=== PATIENT | female | born 1995 | race Asian ===

== ENCOUNTER 2019-12-03 09:50 | Day surgery (SDC) | payer OTHER ==
[~2019-12-03 09:50] MED LIST: Buffered Lidocaine 1% SYRIN* 1 ML/SYRINGE INTRADERM ONE; Dexamethasone IV* 4 MG/ML 1 ML (4 MG) IV SLOW PU ONE; Famotidine IV* 10 MG/ML 2 ML (20 mg) IV ONE; Lactated Ringers 1000 ML Bag* 1,000 ML IV SCH; Scopolamine 1.5 mg* PATCH TRANSDERM ONE
[2019-12-03] MEDS ORDERED: ceFAZolin 2 GM in NS PREMIX(*) 2 GM/100 ML BAG IVPB ONE (10:08)
[2019-12-03] MEDS ORDERED: Buffered Lidocaine 1% SYRIN* 1 ML/SYRINGE INTRADERM ONE (10:08)
[2019-12-03] MEDS ORDERED: Dexamethasone IV* 4 MG/ML 1 ML (4 MG) ONE (10:08)
[2019-12-03] MEDS ORDERED: Famotidine IV* 10 MG/ML 2 ML (20 mg) ONE (10:08)
[2019-12-03] MEDS ORDERED: Scopolamine 1.5 mg* PATCH ONE (10:08)
[2019-12-03] MEDS ORDERED: oxyCODONE/Acetamin 5/325 MG* TAB PO PRN (11:11)
[2019-12-03] MEDS ORDERED: Naloxone* 0.4 MG/ML 1 ML VIAL IV PRN (11:11)
[2019-12-03] MEDS ORDERED: PROCHLORPERAZINE INJ 5 MG/ML 2 ML VIAL IV PRN (11:11)
[2019-12-03] MEDS ORDERED: HYDROcodone/ACETAMIN 5-325 MG* 1 TAB PO PRN (11:11)
[2019-12-03] MEDS ORDERED: Propofol* 10 MG/ML 20 ML BTL ONE (11:28)
[2019-12-03] MEDS ORDERED: Midazolam* 1 MG/ML 5 ML VIAL (5 MG) ONE (11:28)
[2019-12-03] MEDS ORDERED: fentaNYL* 50 MCG/ML 2 ML VIAL (100 MCG VIAL) ONE ×3 (11:28→15:36)
[2019-12-03] MEDS ORDERED: Lidocaine 2% PF * 5 ML VIAL ONE (11:28)
[2019-12-03] MEDS ORDERED: Bupivacaine 0.5% W/EPI SDV* 30 ML VIAL ONE (11:44)
[2019-12-03] MEDS ORDERED: EPINEPHRINE 1 MG/ML 1 ML VIAL ONE (11:44)
[2019-12-03] MEDS ORDERED: Ketorolac INJ* 30 MG/ML 1 ML VIAL ONE (11:54)
[2019-12-03] MEDS ORDERED: KETAMINE HCL* 50 MG/ML 10 ML VIAL ONE (12:00)
[2019-12-03] MEDS ORDERED: Ondansetron INJ* 2 MG/ML VIAL ONE (14:09)
[2019-12-03] MEDS ORDERED: Phenylephrine 40 MCG/ML SYRINGE ONE (14:26)
[2019-12-03] MEDS ORDERED: EPHEDrine (Pressors)* 50 MG/ML VIAL ONE (14:36)
[2019-12-03] MEDS: fentaNYL* 50 MCG/ML 2 ML VIAL (100 MCG VIAL) IV PRN ×2 (15:28→15:34)
[2019-12-03] MEDS ORDERED: PROCHLORPERAZINE INJ 5 MG/ML 2 ML VIAL ONE (16:02)
[2019-12-03 17:35] VITALS: BP 110/68
--- NOTE | 2019-12-04 04:55 | OP ---
DATE OF OPERATION: 12/03/19 - [facility] DATE OF : 89 SURGEON: Glenroy Faye MD BEATER ROOM SUPERVISOR: ZOILA Starr. A physician real estate legal assistant was required for the length of the procedure for assistance with patient positioning, retraction, instrumentation, and closure. ANESTHESIOLOGIST: Dr. Sahara Betancur. ANESTHESIA: General anesthesia, local anesthesia using 30 cc of Marcaine 0.5% with epinephrine. PRE-OP DIAGNOSES: 1. Right knee anterior cruciate ligament tear. 2. Right knee displaced lateral meniscus tear, bucket handle. 3. Right knee locked knee secondary to displaced meniscus tear. 4. Right knee medial collateral ligament low-grade partial sprain. POST-OP DIAGNOSES: 1. Right knee anterior cruciate ligament tear. 2. Right knee displaced lateral meniscus tear, bucket handle. 3. Right knee locked knee secondary to displaced meniscus tear. 4. Right knee medial collateral ligament low-grade partial sprain. OPERATIVE PROCEDURE: 1. Right knee arthroscopic anterior cruciate ligament reconstruction with bone- patella-bone autograft. 2. Right knee lateral meniscus repair, all-inside technique. INDICATIONS: The patient is a 24-year-old woman, a student at [employer], who injured herself 18 days preoperatively while downhill skiing on 11/15/19. The patient developed significant pain and inability to move her right knee. The patient had an x-ray and an MRI at [facility] and was eventually referred to one of my partners who referred the patient to me. The patient had been using crutches and minimizing weightbearing. I diagnosed the patient by MRI with an ACL tear as well as a displaced large bucket- handle lateral meniscal tear. It was clear based on the patient's exam that this meniscus tear, displaced was preventing motion of the knee. I discussed treatment of meniscus tears including partial meniscectomy or meniscus repair. Discussed treatment of ACL reconstruction either nonoperatively or operatively and discussed a variety of graft options. The patient decided on surgery. I wanted to do this immediately given the nature of the patient's knee being locked and so we were able to schedule it for 2 days from our clinic visit with her. We opted for an ACL reconstruction with bone- patella-bone autograft as well as a lateral meniscal repair if this were feasible. I discussed the possible use of cancellous bone chips to fill on any bony defects as needed. I discussed risks and potential complications of surgery. ANTIBIOTICS: Ancef 2 g IV. IV FLUIDS: See Anesthesia note. TAVF-NS-BBCK TIME: 152 minutes. TOURNIQUET TIME: 120 minutes at 300 mmHg, right thigh. SPECIMEN: None. IMPLANTS: Arthrex Bio[employer]posite interference screws, 8 x 20 mm in the femur and 9 x 20 mm in the tibia. [employer] Fast-Fix 360 all-inside suture constructs, x3. ESTIMATED BLOOD LOSS: Minimal. COMPLICATIONS: None. DESCRIPTION OF PROCEDURE: In the preoperative holding, the patient signed a written consent. Operative extremity was marked in the preoperative holding. The patient was taken back to the operating room, placed supine on the operating room table. Sedated and intubated. Bump was placed under the right hemipelvis. Lateral post and foot bumps were placed. Esmarch was applied and tourniquet was elevated. Formal surgical time-out had been performed. I made anterolateral knee arthroscopy portals using standard technique. I started my diagnostic arthroscopy. No patellofemoral compartment disease. No medial compartment disease. The ACL looked in poor shape. There was a clearly displaced lateral meniscus tear. I established an anteromedial portal under direct visualization. Debrided anterior synovitic tissue with an arthroscopic shaver. I used a probe, arthroscopic, to evaluate the ACL. Just using the probe, I was able to demonstrate very clearly that the patient's ACL had ruptured completely or nearly completely proximally. It also looked as though there was a distal full- thickness tear. After I had proven this to myself with the arthroscopic probe, I then applied a shaver very gently and this clearly demonstrated the full-thickness tear along the ACL. I moved to the lateral compartment. The meniscus had not reduced with general anesthesia. I had to give it some nudging with a switching stick and an arthroscopic probe to reduce it. I next performed a meniscal repair using all-inside fixation. I applied 2 Fast- Fix devices in the posterior horn and 1 Fast-Fix device in the body of the lateral meniscus anterior to the popliteal hiatus. The lateral meniscus appeared well fixed in place, anatomic looking. I arranged the knee up to about 115 degrees of flexion and there was no loss of reduction of meniscus. I probed it and it appeared nicely stable. I next proceeded to perform ACL reconstruction. A longitudinal skin incision overlying the patellar tendon. I dissected down to the patellar tendon. Incised longitudinal paratenon. Cut 10 mm inner third patellar tendon. I measured the total width of the patellar tendon to be 31 mm. I obtained bone blocks proximally 24 mm and distally 30 mm. These were obtained with oscillating saws. I removed graft. I closed patellar tendon with buried [id number] stitches using Ethibond 0 and Vicryl 0 suture. On the back table, I prepared my graft. One stitch proximally and 2 distally with FiberWire #5 suture. Returned to the knee. Used all the appropriate landmarks and in hyperflexion drilled a 10-mm diameter femoral tunnel, which was at least 25 mm long. Then with the knee in 90 degrees and using an ACL tibial drill guide, I drilled a tibial tunnel, 10 mm in diameter. I placed a passing suture and then passed my graft. I tapped and then placed my screw in the femur. Fully extended the knee, applied a posterior drawer maneuver, and applied my screw to the tibia. Purchase of screws in either bone was excellent. No laxity whatsoever when I stressed the knee with Wesley's and anterior drawer maneuvers. ACL graft looked taut through a full range of motion arthroscopically. Lateral meniscus was again probed and found to be excellently reduced and stable. Closure. Closure over the tibial tunnel aperture with [id number] stitches using Vicryl 0 suture. Filled in the bone defects with bone collected with Arthrex specific bone reservoir system with my shaver along with bone pieces from graft prep as well as some cancellous allograft. Closed paratenon with running stitches using Vicryl 2-0 suture. Closure of the subcutaneous tissues with buried simple stitches using Vicryl 2-0 suture. Closure of the subcuticular layer of the long incision with Monocryl 3-0 suture. Closure of some of the skin incisions with nylon 3-0 suture. Local anesthetic applied. Mastisol, Steri-Strips. 4x4s, ABDs, sterile Webril, Miguel bandages. Cooling unit and knee brace locked in extension. DISPOSITION: The patient will start physical therapy immediately. Toe-touch weightbearing or nonweightbearing for 6 weeks postoperative with crutches. The patient will be limited to range of motion 0 to 60 degrees for 3 weeks and then 0 to 90 degrees for the second 3 weeks. Then, she will remove the brace at 6 weeks postoperative. Short course of antibiotics, aspirin for DVT prophylaxis, Percocet. The patient will follow up 10 to 14 days postoperatively. [id number]/[facility] #: [id number] JOSE
[2019-12-06] MEDS ORDERED: Scopolamine PATCH Remove* 1 NOTE MISC PATCH OFF ONE (06:00)
== END 2019-12-03 16:30 | disposition home or self-care (01) ==
LOC: OR 09:50
PROVIDERS: ATTEND Orthopaedic Surgery
DX: S83.511A Sprain of anterior cruciate ligament of right knee, initial encounter (principal); S83.251A Bucket-handle tear of lateral meniscus, current injury, right knee, initial encounter; S83.411A Sprain of medial collateral ligament of right knee, initial encounter; V00.321A Fall from snow-skis, initial encounter; Y93.23 Activity, snow (alpine) (downhill) skiing, snowboarding, sledding, tobogganing and snow tubing; Y92.39 Other specified sports and athletic area as the place of occurrence of the external cause
CPT/HCPCS: 81025; A9270-GY; C1713; C1776; J0690; J0780; J1100; J1885; J2250; J2405; J2704; J3010